=== PATIENT | female | born 1945 | race Caucasian/White ===

== ENCOUNTER 2016-10-19 18:53 | Observation (INO) | payer MEDICARE, OTHER ==
[2016-10-19 18:59] VITALS: BP 136/73; PULSE 75; RESP 20; TEMP 98; O2SAT 98
[2016-10-19] MEDS ORDERED: CITA40TA4 PO (19:11)
[2016-10-19] MEDS ORDERED: ESTR.3 PO (19:11)
[2016-10-19] MEDS ORDERED: LEVO75TA3 PO (19:11)
[2016-10-19] MEDS ORDERED: LISI10TA3 PO (19:11)
[2016-10-19] MEDS ORDERED: PANT40TA3 PO (19:11)
--- NOTE | 2016-10-19 19:24 | PD ---
HPI Chief Complaint: GI Complaint Time Seen by Provider: 19:13 Travel History International Travel<30 days: No Contact w/Intl Traveler<30days: No Traveled to known affect area: No History of Present Illness HPI This 71-year-old female says she is been having periods where she gets a flushed feeling all over. She then feels a little bit confused. She is not able to walk during the episodes. The episodes last about half an hour She had episodes like this about 2 weeks ago but did not seek any medical treatment only resolved spontaneously. This started again today. Her friend was glory says she was very flushed and seemed confused. She was half in and half out of her car and was unable to stand up This is largely resolved though she says she still doesn't feel right. PFSH Past Medical History Anxiety: Yes Diminished Hearing: No GERD: Yes Hypertension: Yes Thyroid Disease: Yes Tetanus Vaccination: Unknown Influenza Vaccination: Yes ?: Not Menopausal: Yes Past Surgical History Appendectomy: Yes Hysterectomy: Yes Tonsillectomy: Yes Social History Alcohol Use: No Tobacco Use: No Substance Use: No Allergies-Medications (Allergen,Severity, Reaction): Coded Allergies: No Known Allergies (Unverified , 10/19/16) Reported Meds & Prescriptions Reported Meds & Active Scripts Active Reported Citalopram (Citalopram Hydrobromide) 40 Mg Tab 40 Mg PO DAILY Lisinopril 10 Mg Tab 10 Mg PO DAILY Levothyroxine (Levothyroxine Sodium) 75 Mcg Tab 75 Mcg PO DAILY Pantoprazole (Pantoprazole Sodium) 40 Mg Tab 40 Mg PO DAILY Premarin (Estrogens Conjugated) 0.3 Mg Tab 0.3 Mg PO DAILY Review of Systems General / Constitutional: No: Fever, Chills Eyes: No: Diploplia, Blurred Vision HENT: Positive: Vertigo, Lightheadedness, No: Sore Throat, Neck Stiffness Cardiovascular: No: Chest Pain or Discomfort Respiratory: No: Cough Gastrointestinal: No: Nausea, Vomiting Genitourinary: No: Urgency Musculoskeletal: No: Myalgias, Arthralgias Neurologic: Positive: Weakness, Dizziness, No: Syncope Physical Exam Narrative GENERAL: Well-developed female SKIN: Focused skin assessment warm/dry. HEAD: Atraumatic. Normocephalic. EYES: Pupils equal and round. No scleral icterus. No injection or drainage. ENT: No nasal bleeding or discharge. Mucous membranes pink and moist. NECK: Trachea midline. No JVD. CARDIOVASCULAR: Regular rate and rhythm. No murmur appreciated. RESPIRATORY: No accessory muscle use. Clear to auscultation. Breath sounds equal bilaterally. GASTROINTESTINAL: Abdomen soft, non-tender, nondistended. Hepatic and splenic margins not palpable. MUSCULOSKELETAL: No obvious deformities. No clubbing. No cyanosis. No edema. NEUROLOGICAL: Awake and alert. No obvious cranial nerve deficits. Motor grossly within normal limits. Normal speech. PSYCHIATRIC: Appropriate mood and affect; insight and judgment normal. Data Data Last Documented VS Vital Signs Date Time Temp Pulse Resp B/P Pulse Ox O2 Delivery O2 Flow Rate FiO2 10/19/16 18:59 98.0 75 20 136/73 98 Orders Electrocardiogram (10/19/16 19:22) Complete Blood Count With Diff (10/19/16 19:22) Comprehensive Metabolic Panel (10/19/16 19:22) Troponin I (10/19/16 19:22) Urinalysis - C+S If Indicated (10/19/16 19:22) Ct Brain W/O Iv Contrast(Rout) (10/19/16 19:22) Aspirin (Aspirin) (10/19/16 20:30) Labs Laboratory Tests Test 10/19/16 19:30 White Blood Count 8.2 TH/MM3 Red Blood Count 3.81 MIL/MM3 Hemoglobin 11.9 GM/DL Hematocrit 35.9 % Mean Corpuscular Volume 94.3 FL Mean Corpuscular Hemoglobin 31.4 PG Mean Corpuscular Hemoglobin 33.3 % Concent Red Cell Distribution Width 12.0 % Platelet Count 294 TH/MM3 Mean Platelet Volume 7.7 FL Neutrophils (%) (Auto) 59.9 % Lymphocytes (%) (Auto) 31.7 % Monocytes (%) (Auto) 6.3 % Eosinophils (%) (Auto) 1.3 % Basophils (%) (Auto) 0.8 % Neutrophils # (Auto) 4.9 TH/MM3 Lymphocytes # (Auto) 2.6 TH/MM3 Monocytes # (Auto) 0.5 TH/MM3 Eosinophils # (Auto) 0.1 TH/MM3 Basophils # (Auto) 0.1 TH/MM3 CBC Comment DIFF FINAL Differential Comment Sodium Level 135 MEQ/L Potassium Level 3.9 MEQ/L Chloride Level 99 MEQ/L Carbon Dioxide Level 25.9 MEQ/L Anion Gap 10 MEQ/L Blood Urea Nitrogen 17 MG/DL Creatinine 1.30 MG/DL Estimat Glomerular Filtration 40 ML/MIN Rate Random Glucose 115 MG/DL Calcium Level 8.6 MG/DL Total Bilirubin 0.4 MG/DL Aspartate Amino Transf 31 U/L (AST/SGOT) Alanine Aminotransferase 19 U/L (ALT/SGPT) Alkaline Phosphatase 61 U/L Troponin I LESS THAN 0.02 NG/ML Total Protein 7.3 GM/DL Albumin 3.5 GM/DL MDM Medical Decision Making Medical Screen Exam Complete: Yes Emergency Medical Condition: Yes Medical Record Reviewed: Yes Differential Diagnosis Differential includes TIA, electrolyte imbalance, anemia Narrative Course CT scan of the brain is negative. Patient did have an episode while here. Repeat examination at that time showed her to be alert but she seemed a little slow to answer questions. Exchange Operator were equal. Leg strength is slightly weak bilaterally. 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
[2016-10-19 19:38] LABS: AUTOMATED NEUTROPHIL # 4.9 TH/MM3 (1.8-7.7); BASOPHIL # 0.1 TH/MM3 (0-0.2); BASOPHIL % 0.8 % (0.0-2.0); EOSINOPHIL # 0.1 TH/MM3 (0-0.4); EOSINOPHIL % 1.3 % (0.0-4.0); HEMATOCRIT 35.9 % (35.0-46.0); HEMO FLAGS DIFF FINAL; LYMPH % 31.7 % (9.0-44.0); LYMPHOCYTE # 2.6 TH/MM3 (1.0-4.8); MEAN CELL VOLUME 94.3 FL (80.0-100.0); MEAN CORPUSCULAR HEMOGLOBIN 31.4 PG (27.0-34.0); MEAN CORPUSCULAR HGB CONC 33.3 % (32.0-36.0); MONO % 6.3 % (0.0-8.0); NEUT % 59.9 % (16.0-70.0); PLATELET COUNT 294 TH/MM3 (150-450); RED BLOOD COUNT 3.81 MIL/MM3 (4.00-5.30); WHITE BLOOD COUNT 8.2 TH/MM3 (4.0-11.0)
[2016-10-19 19:45] LABS: CHLORIDE 99 MEQ/L (98-107); POTASSIUM 3.9 MEQ/L (3.5-5.1); SODIUM (NA) 135 MEQ/L (136-145)
[2016-10-19 19:48] LABS: ANION GAP 10 MEQ/L (5-15); BICARBONATE 25.9 MEQ/L (21.0-32.0)
[2016-10-19 19:49] LABS: BLOOD UREA NITROGEN 17 MG/DL (7-18)
--- NOTE | 2016-10-19 19:50 | RADHPO ---
EXAM DATE/TIME: 10/19/2016 19:33 [facility] COMPARISON: No previous studies available for comparison. INDICATIONS : Altered mental status, dizziness. RADIATION DOSE: 61.92 CTDIvol (mGy) MEDICAL HISTORY : Hypertension. SURGICAL HISTORY : None. ENCOUNTER: Initial ACUITY: 1 day PAIN SCALE: 0/10 LOCATION: cranial TECHNIQUE: Multiple contiguous axial images were obtained of the head. Using automated exposure control and adj ustment of the mA and/or kV according to patient size, radiation dose was kept as low as reasonably a chievable to obtain optimal diagnostic quality images. FINDINGS: CEREBRUM: The ventricles are normal for age. No evidence of midline shift, mass lesion, hemorrhage or acute in farction. No extra-axial fluid collections are seen. POSTERIOR FOSSA: The cerebellum and brainstem are intact. The 4th ventricle is midline. The cerebellopontine angle i s unremarkable. EXTRACRANIAL: The visualized portion of the orbits is intact. SKULL: The calvaria is intact. No evidence of skull fracture. CONCLUSION: Unremarkable noncontrast exam. Uvaldo Dyson MD on October 19, 2016 at 19:48 Board Certified Radiologist. This report was verified electronically.
[2016-10-19 19:51] LABS: ALT (GPT) 19 U/L (10-53); AST (GOT) 31 U/L (15-37)
[2016-10-19 19:52] LABS: GLOMERULAR FILTRATION RATE 40 ML/MIN (>89)
[2016-10-19 19:53] LABS: TOTAL BILIRUBIN ADULT 0.4 MG/DL (0.2-1.0)
[2016-10-19 19:54] LABS: ALKALINE PHOSPHATASE 61 U/L (45-117)
[2016-10-19] MEDS ORDERED: ASPIRIN 325 MG TAB PO ONE (20:30)
[2016-10-19 21:25] VITALS: BP 144/78; PULSE 93; RESP 18; TEMP 98.3; O2SAT 99
[2016-10-19] MEDS ORDERED: SODIUM CHLORIDE 0.9% FLUSH 10 ML FLUSH IV FLUSH PRN (21:45)
[2016-10-19 22:26] VITALS: BP 137/70; TEMP 98.3
[2016-10-19 23:45] VITALS: PULSE 65
[2016-10-19 23:54] LABS: BLOOD, URINE NEG (NEG); GLUCOSE,URINE NEG (NEG); KETONE, URINE NEG (NEG); NITRITE,URINE NEG (NEG)
[2016-10-20] VITALS (11 sets, daily range): BP systolic 108–151; BP diastolic 58–82; PULSE 62–91; RESP 16–20; TEMP 96–97.9; O2SAT 94–99
[2016-10-20 00:01] LABS: RBC, URINE 0-2 /hpf (0-3); URINE COLOR STRAW (YELLW/STRAW); WBC, URINE 0-2 /hpf (0-5)
[2016-10-20 00:02] LABS: BACTERIA, URINE OCC /hpf; COMMENT (UR) CULT NOT INDICATED; CULTURE IF INDICATED CULT NOT INDICATED
[2016-10-20] MEDS: LEVOTHYROXINE SODIUM 75 MCG TAB PO SCH (06:20)
[2016-10-20] MEDS: PANTOPRAZOLE SOD 40 MG DELAYED RELEASE TAB PO SCH (06:21)
[2016-10-20] MEDS: SODIUM CHLOR 0.9% 1000 ML INJ 1,000 ML IV SCH ×2 (07:52→22:10)
[2016-10-20] MEDS ORDERED: DOCUSATE SODIUM 50 MG/SENNA 8.6 MG TAB PO PRN (08:00)
[2016-10-20] MEDS ORDERED: ONDANSETRON HCL 4 MG/2 ML VIAL IV PRN (08:00)
[2016-10-20] MEDS ORDERED: CALCIUM CARBONATE 500 MG CHEWABLE TAB CHEW PRN (08:00)
[2016-10-20] MEDS ORDERED: ACETAMINOPHEN 325 MG TAB PO PRN (08:00)
[2016-10-20 08:04] LABS: POTASSIUM 4.6 MEQ/L (3.5-5.1)
[2016-10-20 08:07] LABS: BICARBONATE 29.2 MEQ/L (21.0-32.0)
[2016-10-20] MEDS ORDERED: ASPIRIN 81 MG CHEW TAB PO SCH (09:00)
[2016-10-20 09:07] LABS: HDL CHOLESTEROL 77.2 MG/DL (40.0-60.0); LDL CHOLESTEROL 83 MG/DL (0-99)
[2016-10-20] MEDS: ASPIRIN EC 81 MG TABEC PO SCH (09:38)
[2016-10-20] MEDS: CITALOPRAM HYDROBROMIDE 40 MG TAB PO SCH (09:38)
[2016-10-20] MEDS: SODIUM CHLORIDE 0.9% FLUSH 10 ML FLUSH IV FLUSH SCH ×2 (09:38→20:27)
--- NOTE | 2016-10-20 09:39 | HHI.HP ---
[facility] Shahid Jara M.D. Admission Diagnosis TIA Diagnoses: Chief Complaint: Confusion Travel History International Travel<30 Days: No Contact w/Intl Traveler <30 Da: No Traveled to Known Affected Are: No History of Present Illness Ms. Castro is 71 yo with history of anxiety, GERD, Hypertension, and hypothyroidism. Ms. Castro reported having the onset of "spells" before 2015. She stated these events will begin with "flushing" and a sense of movement "up my body" with subsequent confusion, light headedness, confusion and difficulty walking. She noted these events were "usually on a monthly basis" lasting " about 30 minutes each time." She stated she saw her PCP shortly after the first episode and "I had some sort of scan done on me." Seemingly, results were inconclusive as pt was told "we will wait and see what happens." Pt previous episode was late September. She experienced one on 10/19/16 and "that was too close from the last one." She came to [facility] for evaluation.She noted while she was in the ED she "had a another one." Upon interview, she denied having facial droop, difficulty with speech or swallowing, or hemiparesis. She did endorse heart palpitation but denied they occur at the time of her "spells." Pt denied recent change in medications. Pt evidenced a spell upon a subsequent visit. During this period she reported being warm, light headed, and weak. Pt's systolic pressure was noted to be 136 while seated and dropped to 118 upon standing. No other issues were noted or reported. Review of Systems Except as stated in HPI: all other systems reviewed are Neg Past Family Social History Past Medical History anxiety, GERD, hypertension, and hypothyroidism Past Surgical History Pt noted she had a hysterectomy "but they kept my ovaries." Tonsillectomy. Appendectomy. Reported Medications Reported Meds & Active Scripts Active Reported Citalopram (Citalopram Hydrobromide) 40 Mg Tab 40 Mg PO DAILY Lisinopril 10 Mg Tab 10 Mg PO DAILY Levothyroxine (Levothyroxine Sodium) 75 Mcg Tab 75 Mcg PO DAILY Pantoprazole (Pantoprazole Sodium) 40 Mg Tab 40 Mg PO DAILY Premarin (Estrogens Conjugated) 0.3 Mg Tab 0.3 Mg PO DAILY Allergies: Coded Allergies: No Known Allergies (Unverified , 10/19/16) Active Ordered Medications Current Medications Medications (Trade) Dose Ordered Sig/Marck Route Start Time Stop Time Status Last Admin (NS Flush) 2 ml BID IV FLUSH 10/20/16 09:00 10/20/16 09:38 (NS Flush) 2 ml UNSCH PRN IV FLUSH 10/19/16 21:45 (CeleXA) 40 mg DAILY PO 10/20/16 09:00 10/20/16 09:38 (Synthroid) 75 mcg DAILY@06 PO 10/20/16 06:00 10/20/16 06:20 (Protonix) 40 mg DAILY@06 PO 10/20/16 06:00 10/20/16 06:21 (Tylenol) 650 mg Q4H PRN PO 10/20/16 08:00 (Zofran Inj) 4 mg Q6H PRN IV 10/20/16 08:00 (Risa-Colace) 1 tab BID PRN PO 10/20/16 08:00 Calcium Carbonate 1000 mg 1,000 mg TID PRN CHEW 10/20/16 08:00 (NS 1000 ml Inj) 1,000 ml @ 70 mls/hr [id number] IV 10/20/16 07:52 (Ecotrin Ec) 81 mg DAILY PO 10/20/16 09:00 10/20/16 09:38 Family History Pt reported her mother had several "mini-strokes." No otehr family history reported. Social History Pt denied use of alcohol, nicotine, and illicit/recreational drugs. Physical Exam Vital Signs Vital Signs Date Time Temp Pulse Resp B/P Pulse Ox O2 Delivery O2 Flow Rate FiO2 10/20/16 08:52 98 21 10/20/16 06:00 97.0 64 20 128/65 98 10/20/16 04:00 96.6 64 18 121/65 97 10/20/16 02:15 96.6 62 18 130/66 97 10/20/16 00:15 96.0 63 20 143/75 97 10/19/16 23:45 65 10/19/16 22:26 98.3 88 20 137/70 98 10/19/16 21:25 98.3 93 18 144/78 99 10/19/16 18:59 98.0 75 20 136/73 98 Physical Exam GENERAL: This is a well-nourished, well-developed patient, in no apparent distress. SKIN: No rashes, ecchymoses or lesions. Cool and dry. HEAD: Atraumatic. Normocephalic. No temporal or scalp tenderness. EYES: Pupils equal round and reactive. Extraocular motions intact. No scleral icterus. No injection or drainage. ENT: Nose without bleeding, purulent drainage or septal hematoma. Throat without erythema, tonsillar hypertrophy or exudate. Uvula midline. Airway patent. NECK: Trachea midline. No JVD or lymphadenopathy. Supple, nontender, no meningeal signs. CARDIOVASCULAR: Regular rate and rhythm without murmurs, gallops, or rubs. RESPIRATORY: Clear to auscultation. Breath sounds equal bilaterally. No wheezes , rales, or rhonchi. GASTROINTESTINAL: Abdomen soft, non-tender, nondistended. No guarding. MUSCULOSKELETAL: Extremities without clubbing, cyanosis, or edema. No joint tenderness, effusion, or edema noted. No calf tenderness. NEUROLOGICAL: Awake and alert. Cranial nerves II through XII intact. Motor and sensory grossly within normal limits. Five out of 5 muscle strength in all muscle groups. Normal speech. Laboratory Laboratory Tests Test 10/19/16 10/19/16 10/20/16 19:30 23:15 06:17 White Blood Count 8.2 Red Blood Count 3.81 Hemoglobin 11.9 Hematocrit 35.9 Mean Corpuscular Volume 94.3 Mean Corpuscular Hemoglobin 31.4 Mean Corpuscular Hemoglobin 33.3 Concent Red Cell Distribution Width 12.0 Platelet Count 294 Mean Platelet Volume 7.7 Neutrophils (%) (Auto) 59.9 Lymphocytes (%) (Auto) 31.7 Monocytes (%) (Auto) 6.3 Eosinophils (%) (Auto) 1.3 Basophils (%) (Auto) 0.8 Neutrophils # (Auto) 4.9 Lymphocytes # (Auto) 2.6 Monocytes # (Auto) 0.5 Eosinophils # (Auto) 0.1 Basophils # (Auto) 0.1 CBC Comment DIFF FINAL Differential Comment Sodium Level 135 142 Potassium Level 3.9 4.6 Chloride Level 99 105 Carbon Dioxide Level 25.9 29.2 Anion Gap 10 8 Blood Urea Nitrogen 17 14 Creatinine 1.30 1.00 Estimat Glomerular Filtration 40 55 Rate Random Glucose 115 92 Calcium Level 8.6 9.3 Total Bilirubin 0.4 Aspartate Amino Transf 31 (AST/SGOT) Alanine Aminotransferase 19 (ALT/SGPT) Alkaline Phosphatase 61 Troponin I LESS THAN 0.02 Total Protein 7.3 Albumin 3.5 Urine Color STRAW Urine Turbidity CLEAR Urine pH 7.0 Urine Specific Peck 1.006 Urine Protein NEG Urine Glucose (UA) NEG Urine Ketones NEG Urine Occult Blood NEG Urine Nitrite NEG Urine Bilirubin NEG Urine Leukocyte Esterase NEG Urine RBC 0-2 Urine WBC 0-2 Urine Squamous Epithelial 6-8 Cells Urine Bacteria OCC Microscopic Urinalysis Comment CULT NOT INDICATED Total Creatine Kinase 48 Triglycerides Level 232 Cholesterol Level 207 LDL Cholesterol 83 HDL Cholesterol 77.2 Cholesterol/HDL Ratio 2.68 Thyroid Stimulating Hormone 2.530 3rd Gen Result Diagram: 10/19/16192910/20/1617 Imaging Last [address] 10/19/161921 Signed Impressions: Service Date/Time: Wednesday, October 19, 2016 19:33 - CONCLUSION: Unremarkable noncontrast exam. Uvaldo Dyson MD Assessment and Plan Problem List: (1) TIA (transient ischemic attack) ICD Code: G45.9 Status: Acute (2) Hypertension ICD Code: I10 Status: Chronic (3) Hypothyroid ICD Code: E03.9 Status: Chronic (4) GERD (gastroesophageal reflux disease) ICD Code: K21.9 Status: Chronic Assessment and Plan TIA possible sz vs orthostasis Initial CT negative for acute issues. MRI to be ordered Holter monitor placed, pt on telemetry Carotid ultrasound to be ordered. Check EEG Neuro checks and sz precautions Start IVF neurology to be consulted. Hypertension pt's lisinopril to be held until MRI complete. If findings are negative, IVF fluids to be stopped and pt's lisinopril to be restarted. Hypothyroid check TSH level GERD continue home regimen of Protonix 40 mg PO daily DVT prophylaxis with SCD and early ambulation Code Status Full code Discussed Condition With Case discussed with Pt, nurse, and Dr. Morse. Written by Ralph Barlow, acting as scribe for Dr. Morse on 10/20/16 at 09:57. This note was transcribed by scribe Ralph Barlow. I, Dr. Neo Morse personally performed the history, physical exam, and medical decision making; and confirmed the accuracy of the information in the transcribed note. Authenticated by Dr. Neo Morse on 10/20/16 at 12:45. 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 October 20, 2016 09:39 Neo Morse MD October 20, 2016 12:46
[2016-10-20] MEDS ORDERED: levETIRAcetam 1000 MG INJ 100 ML IV ONE (12:00)
--- NOTE | 2016-10-20 12:08 | EC ---
Study Study Date:10/20/2016 STUDY CONCLUSIONS SUMMARY - Left ventricle: The cavity size was normal. Wall thickness was normal. Systolic function was normal. The estimated ejection fraction was in the range of 55% to 60%. Wall motion was normal; there were no regional wall motion abnormalities. - Aortic valve: Valve area: 2.24cm^2 (Vmax). - Tricuspid valve: Mild regurgitation. If LV function is below 40, please consider prescribing an ACEI or ARB or document rationale for non-use. PROCEDURE DATA STUDY STATUS: Elective. Procedure: Transthoracic echocardiography. Image quality was good. Scanning was performed from the parasternal, apical, and subcostal acoustic windows. Study completion: The patient tolerated the procedure well. Transthoracic echocardiography. M-mode, complete 2D, complete spectral Doppler, and color Doppler. Height: Height: 63in. Weight: Weight: 126.7lb. Body mass index: BMI: 22.5kg/m^2. Body surface area: BSA: 1.59m^2. Patient status: Inpatient. CARDIAC ANATOMY LEFT VENTRICLE: The cavity size was normal. Wall thickness was normal. Systolic function was normal. The estimated ejection fraction was in the range of 55% to 60%. Wall motion was normal; there were no regional wall motion abnormalities. AORTIC VALVE: Trileaflet; normal thickness leaflets. Doppler: Transvalvular velocity was within the normal range. There was no stenosis. No regurgitation. Valve area: 2.24cm^2 (Vmax). Indexed valve area: 1.41cm^2/m^2 (Vmax). AORTA: Aortic root: The aortic root was normal in size. MITRAL VALVE: Structurally normal valve. Doppler: Transvalvular velocity was within the normal range. There was no evidence for stenosis. Trace regurgitation. Valve area by pressure half-time: 3.73cm^2. Indexed valve area by pressure half-time: 2.35cm^2/m^2. Peak gradient: 2mm Hg (D). LEFT ATRIUM: The atrium was normal in size. RIGHT VENTRICLE: The cavity size was normal. Wall thickness was normal. PULMONIC VALVE: Doppler: Transvalvular velocity was within the normal range. There was no evidence for stenosis. No regurgitation. TRICUSPID VALVE: Structurally normal valve. Doppler: Transvalvular velocity was within the normal range. Mild regurgitation. Peak gradient: 28mm Hg (D). PULMONARY ARTERY: The main pulmonary artery was normal-sized. Systolic pressure was within the normal range. RIGHT ATRIUM: The atrium was normal in size. PERICARDIUM: There was no pericardial effusion. SYSTEMIC VEINS: Inferior vena cava: The vessel was normal in size. Patient weight: 126.7lb _Ejection fraction:_ 65-75% _Fractional shortening:_ 32% up to 5Kg 5-11.5Kg 11.6-22.9Kg 23-45Kg 45-57Kg Aortic Root 7-13 <17 13-22 17-27 17-27 LA diam 6-13 <23 24-38 33-47 37-40 RVID 10-17 7-15 7-15 7-18 8-17 LVIDd 12-22 <32 24-38 33-47 37-40 LVPW 2-4 3-6 5-7 6-8 7-8 IVS 2-4 3-6 5-7 6-8 7-8 BASIC MEASUREMENTS ADULT NORMAL Left ventricle LV internal dimension, ED, chordal 44.4 mm 43-52 level, PLAX LV internal dimension, ES, chordal 27.7 mm 23-38 level, PLAX Fractional shortening, chordal level, 38 % >29 PLAX LV posterior wall thickness, ED 6.69 mm IVS/LVPW ratio, ED 1.03 <1.3 Ventricular septum Septal thickness, ED 6.86 mm Left atrium Anterior-posterior dimension 29 mm Anterior-posterior dimension index 1.82 cm/m^2 <2.2 Right ventricle RV internal dimension, ED, PLAX 26.6 mm 19-38 DOPPLER MEASUREMENTS ADULT NORMAL Aortic valve Peak velocity, S 128 cm/s Valve area, Vmax 2.24 cm^2 Valve area index, Vmax 1.41 cm^2/m^2 Mitral valve Peak E-wave velocity 73.5 cm/s Peak A-wave velocity 90.8 cm/s Pressure half-time 59 ms Peak gradient, D 2 mm Hg Peak E/A ratio 0.8 Valve area, pressure half-time 3.73 cm^2 Valve area index, pressure half-time 2.35 cm^2/m^2 Tricuspid valve Peak gradient, D 28 mm Hg Maximal inflow velocity 263 cm/s Systemic veins Estimated CVP 10 mm Hg Pulmonic valve Peak velocity, S 84.2 cm/s LEGEND: Mean values are shown as u=mean value. Asterisk (*) collins values outside specified normal range. Prepared and signed by Joesph Gaines [id number]
--- NOTE | 2016-10-20 12:40 | MB ---
cc: GARCIA ORR M.D. DATE OF CONSULTATION 10/20/2016 REASON FOR CONSULTATION This is a 71-year-old seen in neurological consultation. She was brought to the hospital yesterday because of increasing frequency and severity of spells. Apparently she has had spells since June this year or even before [place]. She has a sense of a flushing sensation, this seems to come with an unusual smell that moves from her stomach to her nose and head. She might act up a little bit confused. There was some sort of spell yesterday and the patient seemed to be staring and poorly responsive and did not seem to be able to carry out activities appropriately. Apparently some of these spells may last 30 minutes or so. They become more frequent and she subsequently came to the hospital. PAST MEDICAL HISTORY She has a history of: 1. Hypertension 2. Depression MEDICATIONS he is on: 1. Citalopram 2. Lisinopril 3. Thyroid replacement 4. Pantoprazole 5. Premarin FAMILY HISTORY No history of stroke, seizures or TIAs. SOCIAL HISTORY She does not use any recreational drugs or alcohol. NEUROLOGICAL EXAM The neurologic exam shows normal mentation. She was alert pleasant, and oriented. Ocular movements and visual chong full. Normal strength throughout. Reflexes were 1+ throughout. Plantar responses flexor. Pupils equal and reactive. Normal speech and language. The CT brain is negative. When I saw her, she was getting ready to go to the MRI brain. The laboratory data was reviewed. CBC is normal and chemistry is showing slight increase in creatinine, sodium 135, glucose 115. ASSESSMENT Recurrent spells for the past few months. The spells actually seemed to be more suggestive of a complex partial seizure rather than TIA as questioned. Therefore, I am requesting an EEG and after the EEG is completed, I will start her on Keppra intravenous one gram bolus followed by 500 mg twice a day and if the MRI brain is negative, she could be followed in the office in a weekly two. She is to have carotid ultrasound, already requested. I have discussed this with the patient and I have asked her not to drive for the time being and informed her that the law in [place] would require at least six months of seizure free before she is allowed back to driving and she understands this well. The son accompanied her during my visit. Thank you for asking us to assist in her care. MD CHLOÉ Kaufman/NEHA /12:19 PM /12:30 PM
[2016-10-20] MEDS ORDERED: ASPI81TA11 PO (13:08)
[2016-10-20] MEDS ORDERED: LEVE500 PO (13:08)
--- NOTE | 2016-10-20 13:08 | HHI.DCPOC ---
Discharge Care Plan Diagnosis: (1) TIA (transient ischemic attack) (2) Hypertension Your Health Problems Are: Difficulty with ADL Exercise Tolerance Goals to Promote Your Health * To prevent worsening of your condition and complications * To maintain your health at the optimal level Directions to Meet Your Goals Take your medications as prescribed Follow your dietary instruction Follow activity as directed Keep your appointments as scheduled Take your immunizations and boosters as scheduled If your symptoms worsen call your PCP, if no PCP go to Urgent Care Center or Emergency Room Smoking is Dangerous to Your Health. Avoid second hand smoke Call the 24-hour hour crisis hotline for domestic abuse at Neo Morse MD October 20, 2016 13:08
--- NOTE | 2016-10-20 14:00 | RADHPO ---
EXAM DATE/TIME: 10/20/2016 11:34 [facility] COMPARISON: No previous studies available for comparison. INDICATIONS : CVA. MEDICAL HISTORY : Hypertension. SURGICAL HISTORY : Hysterectomy. Appendectomy. Breast implants. ENCOUNTER: Initial ACUITY: 1 day PAIN SCORE: 0/10 LOCATION: Head. TECHNIQUE: Multiplanar, multisequence MRI of the brain was performed without contrast. FINDINGS: CEREBRUM: The ventricles are normal for age. No evidence of midline shift, mass lesion, hemorrhage or acute in farction. No extraaxial fluid collections are seen. The pituitary gland and suprasellar cistern are normal in configuration. WHITE MATTER: There is some punctate areas of increased T2 signal most consistent with mild microvascular ischemic demyelinative change. No significant signal abnormalities are seen in the white matter. POSTERIOR FOSSA: The cerebellum and brainstem are intact. The 4th ventricle is midline. The cerebellopontine angle is unremarkable. The cerebellar tonsils are normal in position. DIFFUSION IMAGING: No focal areas of restricted diffusion are seen. No evidence of acute infarction. EXTRACRANIAL: The visualized portions of the orbits and paranasal sinuses are unremarkable. CONCLUSION: 1. No findings to indicate acute cortical infarct. Robret Danielle MD on October 20, 2016 at 13:55 Board Certified Radiologist. This report was verified electronically.
--- NOTE | 2016-10-20 14:31 | RADHPO ---
EXAM DATE/TIME: 10/20/2016 18:20 [place] COMPARISON: No previous studies available for comparison. INDICATIONS : Cerebrovascular accident. MEDICAL HISTORY : Gastroesophageal reflux disease. Hypertension. Thyroid disease. SURGICAL HISTORY : Appendectomy. Hysterectomy. Tonsillectomy. ENCOUNTER: Initial ACUITY: 1 day PAIN SCORE: 0/10 LOCATION: Bilateral neck PEAK SYSTOLIC VELOCITIES (cm/sec): ICA/CCA RATIO: Right: 1.6 Left: 1.3 ICA: Right: 133 Left: 120 CCA: Right: 84 Left: 89 ECA: Right: 80 Left: 98 VERTEBRAL: Right: 57 antegrade Left: 50 antegrade Elevated flow velocities and ICA/CCA ratios have been found to correlate with increased degrees of vessel stenosis, calculated as percentage of diameter relative to a normal segment of distal ICA/CCA FINDINGS: RIGHT CAROTID: No significant stenosis is visualized. The waveforms are within normal limits. LEFT CAROTID: No significant stenosis is visualized. The waveforms are within normal limits. VERTEBRAL ARTERIES: Antegrade flow is seen in both vertebral arteries. MISCELLANEOUS: None. CONCLUSION: 1. Mild calcified plaque without a hemodynamically significant stenosis. The mild elevation of veloci ties bilaterally of the ICAs is felt related to the tortuosity of those vessels. 2. Antegrade flow involving both vertebral arteries. Silver Carpio Jr., MD on October 20, 2016 at 14:25 Board Certified Radiologist. This report was verified electronically.
[2016-10-20 18:38] LABS: HEMOGLOBIN A1b 1.6 %; HEMOGLOBIN LA1C 1.9 %
--- NOTE | 2016-10-20 18:48 | EKG ---
Date Performed: 10/19/2016 Time Performed: 19:31:16 PTAGE: 71 years EKG: Sinus rhythm Normal ECG NO PREVIOUS TRACING DOCTOR: Misael Rizo Interpretating Date/Time 10/20/2016 18:44:14
[2016-10-20] MEDS: levETIRAcetam 500 MG TAB PO SCH (20:27)
[2016-10-21] VITALS: BP 131/72; PULSE 70; RESP 16; TEMP 98.1; O2SAT 96
[2016-10-21] MEDS: SODIUM CHLOR 0.9% 1000 ML INJ 1,000 ML IV SCH (01:07)
[2016-10-21 04:00] VITALS: BP 140/77; PULSE 66; RESP 18; TEMP 97.4; O2SAT 95
[2016-10-21] MEDS: PANTOPRAZOLE SOD 40 MG DELAYED RELEASE TAB PO SCH (05:33)
[2016-10-21] MEDS: LEVOTHYROXINE SODIUM 75 MCG TAB PO SCH (05:33)
--- NOTE | 2016-10-21 07:37 | MG ---
cc: ROSA GAVIRIA M.D. Lab No: [id number] Date: 10/21/2016 Age: 71 Sex: F Awake, drowsy and asleep. A 71-year-old woman confused, anxiety, caffeine. Celexa, Keppra. DESCRIPTION An 8 Hz, 60 microvolt posterior symmetric rhythm is noted. Photic stimulation was performed without significant posterior driving. The recording overall is synchronous and symmetric. Hyperventilation was performed without significant change in the background. The patient fell asleep but did not reach stage II sleep. IMPRESSION Normal awake and sleep EEG. No evidence for a focal or diffuse abnormality. MD KASSI Hooper/WILFRED /7:12 AM /7:34 AM
[2016-10-21 08:00] VITALS: BP_SYST 131; BP_SYST 139; BP_DIAS 76; BP_DIAS 85; PULSE 85; RESP 19; TEMP 97.7; O2SAT 94
--- NOTE | 2016-10-21 08:45 | HHI.PR ---
Subjective Remarks Follow-up TIA versus seizure versus orthostasis. She feels much better no further episodes has been out of bed several times. Repeat orthostatics negative. Discussed with RN Objective Vitals Vital Signs Date Time Temp Pulse Resp B/P Pulse Ox O2 Delivery O2 Flow Rate FiO2 10/21/16 04:00 97.4 66 18 140/77 95 10/21/16 00:00 98.1 70 16 131/72 96 10/20/16 20:20 69 10/20/16 20:00 97.0 91 16 151/82 98 10/20/16 19:50 99 21 10/20/16 18:08 18 10/20/16 16:00 97.5 78 20 135/79 96 10/20/16 10:00 73 116/71 94 10/20/16 10:00 72 120/68 94 10/20/16 10:00 81 108/58 95 10/20/16 08:52 98 21 I/O 10/20/16 10/20/16 10/20/16 10/21/16 10/21/16 10/21/16 07:00 15:00 23:00 07:00 15:00 23:00 Intake Total 0 ml 400 ml 1159 ml 560 ml Balance 0 ml 400 ml 1159 ml 560 ml Intake Oral 0 ml 400 ml 400 ml IV Total 759 ml 560 ml # Voids 1 4 3 # Bowel Movements 0 0 Result Diagram: 10/19/16 1930 10/20/16 0617 Imaging Last Impressions Carotid Artery Ultrasound 10/20/16 0000 Signed Impressions: Service Date/Time: October 18:20 - CONCLUSION: 1. Mild calcified plaque without a hemodynamically significant stenosis. The mild elevation of velocities bilaterally of the ICAs is felt related to the tortuosity of those vessels. 2. Antegrade flow involving both vertebral arteries. Silver Carpio Jr., MD Brain MRI 10/20/16 0000 Signed Impressions: Service Date/Time: October 11:34 - CONCLUSION: 1. No findings to indicate acute cortical infarct. Robert Danielle MD Head CT 10/19/16 1922 Signed Impressions: Service Date/Time: Wednesday, October 19, 2016 19:33 - CONCLUSION: Unremarkable noncontrast exam. Uvaldo Dyson MD Objective Remarks GENERAL: This is a well-nourished, well-developed patient, in no apparent distress. SKIN: No rashes, ecchymoses or lesions. Cool and dry. HEAD: Atraumatic. Normocephalic. No temporal or scalp tenderness. EYES: Pupils equal round and reactive. Extraocular motions intact. No scleral icterus. No injection or drainage. ENT: Nose without bleeding, purulent drainage or septal hematoma. Throat without erythema, tonsillar hypertrophy or exudate. Uvula midline. Airway patent. NECK: Trachea midline. No JVD or lymphadenopathy. Supple, nontender, no meningeal signs. CARDIOVASCULAR: Regular rate and rhythm without murmurs, gallops, or rubs. RESPIRATORY: Clear to auscultation. Breath sounds equal bilaterally. No wheezes , rales, or rhonchi. GASTROINTESTINAL: Abdomen soft, non-tender, nondistended. No guarding. MUSCULOSKELETAL: Extremities without clubbing, cyanosis, or edema. No joint tenderness, effusion, or edema noted. No calf tenderness. NEUROLOGICAL: Awake and alert. Cranial nerves II through XII intact. Motor and sensory grossly within normal limits. Five out of 5 muscle strength in all muscle groups. Normal speech. Procedures none A/P Problem List: (1) TIA (transient ischemic attack) ICD Code: G45.9 Status: Resolved (2) Hypertension ICD Code: I10 Status: Chronic (3) Hypothyroid ICD Code: E03.9 Status: Chronic (4) GERD (gastroesophageal reflux disease) ICD Code: K21.9 Status: Chronic Assessment and Plan Sz vs orthostasis vs TIA. Currently improved. Neurologically intact Neuro workup negative to include head CT, brain MRI, Carotid ultrasound, ECHO and EEG Neuro checks and sz precautions Orthostatics improved off IV fluids neurology started Keppra which patient is tolerating. No climbing heights, carrying young children and swimming alone Hypertension pt's lisinopril to be restarted if systolic blood pressure greater than 120 Hypothyroid Normal TSH level GERD continue home regimen of Protonix 40 mg PO daily DVT prophylaxis with SCD and early ambulation Discharge Planning Discharge patient to home Condition on discharge: Improved Regular Diet as tolerated Ad Kelley activity. 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
[2016-10-21] MEDS: levETIRAcetam 500 MG TAB PO SCH (09:21)
[2016-10-21] MEDS: CITALOPRAM HYDROBROMIDE 40 MG TAB PO SCH (09:21)
[2016-10-21] MEDS: ASPIRIN EC 81 MG TABEC PO SCH (09:22)
[2016-10-21] MEDS: SODIUM CHLORIDE 0.9% FLUSH 10 ML FLUSH IV FLUSH SCH (09:22)
--- NOTE | 2016-10-24 11:32 | HM ---
Date Performed: 10/20/2016 Time Performed: 16:28:00 HOOKUP DATE: 10/20/16 04:28:00 PM [facility] ANALYSIS START TIME: 10/20/2016 4:33:00 PM ANALYSIS END TIME: 10/21/2016 11:20:40 AM PATIENT AGE: 71 PATIENT HEIGHT PATIENT WEIGHT DRUG LIST PATIENT DIAGNOSIS TEST NARRATIVE: The patient's average heart rate was 69 BPM. No episodes of tachycardia wer e noted. No episodes of bradycardia were noted. No pauses exceeding 2.0 seconds were noted. 112 ventricular ectopics, which represented < 1% of the total beat count, were noted. The highest ve ntricular ectopic frequency occurred from 09:00 AM to 10:00 AM Fri. During this time 16 VE(s) occurr ed. Ventricular ectopics were observed as 112 isolated beat(s) only. No couplets or runs were noted . 137 supraventricular ectopics, which represented < 1% of the total beat count, were noted. The highest supraventricular ectopic frequency occurred from 04:00 AM to 05:00 AM Fri. During this time 30 SVE(s) occurred. No episodes of ST depression (defined as -1.0 mm or more) were noted in [place] 1. No episodes of ST depression (defined as -1.0 mm or more) were noted in channel 2. No episod es of ST depression (defined as -1.0 mm or more) were noted in channel 3. TEST INTERPRETATION: Benign Holter Monitor Signed by : Juan Mendieta
== END 2016-10-21 09:39 | disposition home or self-care (01) ==
LOC: PHED 18:53 → PHEDA 20:48 → PH3A 22:49
PROVIDERS: ADMIT Internal Medicine; ATTEND Internal Medicine
DX: G45.0 Vertebro-basilar artery syndrome (principal); K21.9 Gastro-esophageal reflux disease without esophagitis; I10 Essential (primary) hypertension; E03.9 Hypothyroidism, unspecified; F41.9 Anxiety disorder, unspecified; F32.9 Major depressive disorder, single episode, unspecified
CPT/HCPCS: 70450; 70551; 80048; 80053; 80061; 81001; 82550; 82948; 83036; 84443; 84484; 85025; 92523; 92610; 93005; 93225; 93226; 93306; 93880; 94150; 95819; 97162; 97166; 99285; G0378; G8987; G8988; G8989; G8996; G8997; G8998; G9159; G9160; G9161; J1953; J7030

== ENCOUNTER 2016-12-13 10:23 | Emergency (ER) | payer MEDICARE, OTHER ==
[~2016-12-13] VITALS: Ht 160 cm; Wt 62.0 kg
[~2016-12-13 10:23] MED LIST: ASPI81TA11 PO; CITA40TA4 PO; ESTR.3 PO; LEVE500 PO; LEVO75TA3 PO; LISI10TA3 PO; PANT40TA3 PO
[2016-12-13 10:35] VITALS: BP 113/47; PULSE 70; RESP 16; TEMP 98.1; O2SAT 100
--- NOTE | 2016-12-13 11:06 | PD ---
HPI Chief Complaint: GI Complaint Time Seen by Provider: 10:36 Travel History International Travel<30 days: No Contact w/Intl Traveler<30days: No Traveled to known affect area: No History of Present Illness HPI This patient had an extensive neurological workup one month ago for some atypical symptoms she's been having on and off for 2 full years. She had an episode this morning where she felt some flushing and nausea and a variety of atypical sensations. She did not have any strokelike symptoms. She had CT and MRI and EEG and neurological evaluation last month. They recommended that she follow up with the neurologist Dr. Duong and start Keppra 500 twice a day. She has not done either of these things. He felt that they may represent complex partial seizures. Symptoms severity is moderate. No alleviating factors. Spells last one hour and resolved. She is currently feeling okay now [facility] Past Medical History Anxiety: Yes Cerebrovascular Accident: Yes Diminished Hearing: No GERD: Yes Hypertension: Yes Thyroid Disease: Yes Tetanus Vaccination: < 5 Years Influenza Vaccination: Yes Menopausal: Yes Past Surgical History Appendectomy: Yes Hysterectomy: Yes Tonsillectomy: Yes Social History Alcohol Use: No Tobacco Use: No Substance Use: No Allergies-Medications (Allergen,Severity, Reaction): Coded Allergies: No Known Allergies (Unverified , 12/13/16) Reported Meds & Prescriptions Reported Meds & Active Scripts Active Keppra (Levetiracetam) 500 Mg Tab 500 Mg PO BID Aspirin EC (Aspirin) 81 Mg Tabdr 81 Mg PO DAILY Reported Citalopram (Citalopram Hydrobromide) 40 Mg Tab 40 Mg PO DAILY Lisinopril 10 Mg Tab 10 Mg PO DAILY Levothyroxine (Levothyroxine Sodium) 75 Mcg Tab 75 Mcg PO DAILY Pantoprazole (Pantoprazole Sodium) 40 Mg Tab 40 Mg PO DAILY Premarin (Estrogens Conjugated) 0.3 Mg Tab 0.3 Mg PO DAILY Review of Systems HENT: No: Headaches Cardiovascular: No: Chest Pain or Discomfort Respiratory: No: Cough Gastrointestinal: Positive: Diarrhea Skin: No Rash Neurologic: No: Weakness Physical Exam Narrative GENERAL: Well-nourished, well-developed patient. SKIN: Focused skin assessment warm/dry. HEAD: Normocephalic. EYES: No scleral icterus. No injection or drainage. NECK: Supple, trachea midline. No JVD or lymphadenopathy. CARDIOVASCULAR: Regular rate and rhythm without murmurs, gallops, or rubs. RESPIRATORY: Breath sounds equal bilaterally. No accessory muscle use. GASTROINTESTINAL: Abdomen soft, non-tender, nondistended. MUSCULOSKELETAL: No cyanosis, or edema. BACK: Nontender without obvious deformity. No CVA tenderness. NEUROLOGICAL: Awake and alert. Pupils are equal round and reactive. Motor and sensory grossly within normal limits. Five out of 5 muscle strength in all muscle groups. Normal speech. Data Data Last Documented VS Vital Signs Date Time Temp Pulse Resp B/P Pulse Ox O2 Delivery O2 Flow Rate FiO2 12/13/16 10:37 12/13/16 10:35 98.1 70 16 100 Room Air MDM Medical Decision Making Medical Screen Exam Complete: Yes Emergency Medical Condition: Yes Medical Record Reviewed: Yes Differential Diagnosis Couplets partial seizure, anxiety, panic, hormonal imbalance Narrative Course I have reviewed the patient's electronic medical record. Reviewed her neurological consultation from last month This patient has normal exam and normal vital signs and her symptoms have resolved. This is a chronic problem over 2 years of time and had full evaluation during hospitalization last month. I recommended she call neurologist for follow-up and start the keppra as he recommended I reiterated she should not be driving She should also follow with primary care Diagnosis Primary Impression: Seizure disorder, complex partial Qualified Code: G40.209 - Partial symptomatic epilepsy with complex partial seizures, not intractable, without status epilepticus Additional Instructions: Start taking her Keppra prescription Call the office of Dr. Duong and your primary physician for follow-up Neurologist has recommended no driving for 6 months Med/Other Pt SpecificInfo: Other Disposition: 01 DISCHARGE HOME Condition: Stable Nikunj Palma MD Dec 13, 2016 11:06
[2016-12-13 11:09] VITALS: BP 126/57; PULSE 70; RESP 18; O2SAT 99
== END 2016-12-13 11:34 | disposition home or self-care (01) ==
LOC: PHED 10:23
DX: G40.209 Localization-related (focal) (partial) symptomatic epilepsy and epileptic syndromes with complex partial seizures, not intractable, without status epilepticus (principal); I10 Essential (primary) hypertension; K21.9 Gastro-esophageal reflux disease without esophagitis
CPT/HCPCS: 99282

== ENCOUNTER 2017-04-02 10:01 | Emergency (ER) | payer MEDICARE, OTHER ==
[~2017-04-02] VITALS: Ht 160 cm; Wt 57.3 kg
[2017-04-02 10:05] VITALS: BP 128/70; PULSE 72; RESP 24; TEMP 98.3; O2SAT 100
[2017-04-02] MEDS ORDERED: DILA100C PO (10:21)
[2017-04-02] MEDS ORDERED: SODIUM CHLOR 0.9% 1000 ML INJ 1,000 ML IV SCH (10:45)
[2017-04-02] MEDS ORDERED: LORazepam 2 MG/ML VIAL IV PUSH ONE (10:45)
[2017-04-02 10:48] LABS: AUTOMATED NEUTROPHIL # 4.7 TH/MM3 (1.8-7.7); BASOPHIL # 0.1 TH/MM3 (0-0.2); BASOPHIL % 0.7 % (0.0-2.0); EOSINOPHIL # 0.1 TH/MM3 (0-0.4); HEMATOCRIT 36.3 % (35.0-46.0); HEMO FLAGS DIFF FINAL; LYMPH % 27.7 % (9.0-44.0); MEAN CELL VOLUME 94.8 FL (80.0-100.0); MEAN CORPUSCULAR HEMOGLOBIN 32.2 PG (27.0-34.0); MONO % 7.2 % (0.0-8.0); NEUT % 63.4 % (16.0-70.0); PLATELET COUNT 268 TH/MM3 (150-450); RED BLOOD COUNT 3.83 MIL/MM3 (4.00-5.30); RED CELL DISTRIBUTION WIDTH 12.1 % (11.6-17.2); WHITE BLOOD COUNT 7.4 TH/MM3 (4.0-11.0)
[2017-04-02 10:49] LABS: BLOOD, URINE NEG (NEG); GLUCOSE,URINE NEG (NEG); KETONE, URINE TRACE mg/dL (NEG); NITRITE,URINE NEG (NEG); PH, URINE 6.5 (5.0-8.5)
[2017-04-02 10:57] LABS: CHLORIDE 101 MEQ/L (98-107); SODIUM (NA) 135 MEQ/L (136-145)
[2017-04-02 11:03] LABS: ANION GAP 11 MEQ/L (5-15); BICARBONATE 22.8 MEQ/L (21.0-32.0); BLOOD UREA NITROGEN 15 MG/DL (7-18)
[2017-04-02 11:04] VITALS: BP 144/69; PULSE 63; RESP 16; O2SAT 99
[2017-04-02 11:06] LABS: ALT (GPT) 28 U/L (10-53); AST (GOT) 42 U/L (15-37); GLOMERULAR FILTRATION RATE 63 ML/MIN (>89)
[2017-04-02 11:07] LABS: TOTAL BILIRUBIN ADULT 0.4 MG/DL (0.2-1.0)
[2017-04-02 11:08] LABS: ALKALINE PHOSPHATASE 84 U/L (45-117); METHOD OF COLLECTION CATH; URINE COLOR YELLOW (YELLW/STRAW)
[2017-04-02 11:10] LABS: BACTERIA, URINE FEW /hpf; COMMENT (UR) CATH-CULTURE IND; COMMENT2 (UR) MUCOUS PRESENT; CULTURE IF INDICATED CATH CULTURE IND; SQUAMOUS EPITHELIAL CELL URINE > 8 /hpf (0-5); TRANSITIONAL EPI CELLS, URINE 0-5 /hpf
--- NOTE | 2017-04-02 11:31 | PD ---
HPI Chief Complaint: Seizure Time Seen by Provider: 10:15 Travel History International Travel<30 days: No Contact w/Intl Traveler<30days: No Traveled to known affect area: No History of Present Illness HPI This 71-year-old woman presents with family members complaining of what she describes as partial focal seizures. She states it for some time now she's experienced episodes of hot flashes cold chills shaking with confusion that happened in discrete episodes. She reports that she sees Dr. Duong, and he's been diagnosed as partial and focal seizures. Family reports that over the past year or 2 since he started her confusion is gotten overall worse. She was seen here in the hospital a couple months ago where she had a negative workup including EEGs were negative. She reports that she was at [facility] about a month or so ago and had negative EEGs that time as well. They're in the emergency department today because over the past week she's had episodes nearly daily, lasting 5-10 minutes, but today's had constant symptoms. She does have a history of anxiety and takes medicines for anxiety as well. Denies any other new or worsening symptoms. History Past Medical History Narrative Medical Anxiety CVA GERD Hypertension Hypothyroidism Menopausal: Yes Social History Alcohol Use: No Tobacco Use: No Allergies-Medications (Allergen,Severity, Reaction): Coded Allergies: No Known Allergies (Unverified , 04/02/17) Reported Meds & Prescriptions Reported Meds & Active Scripts Active Aspirin EC (Aspirin) 81 Mg Tabdr 81 Mg PO DAILY Reported Dilantin (Phenytoin Extended) 100 Mg Cap 100 Mg PO TID Citalopram (Citalopram Hydrobromide) 40 Mg Tab 40 Mg PO DAILY Lisinopril 10 Mg Tab 10 Mg PO DAILY Levothyroxine (Levothyroxine Sodium) 75 Mcg Tab 75 Mcg PO DAILY Pantoprazole (Pantoprazole Sodium) 40 Mg Tab 40 Mg PO DAILY Premarin (Estrogens Conjugated) 0.3 Mg Tab 0.3 Mg PO DAILY Review of Systems Except as stated in HPI: all other systems reviewed are Neg Physical Exam Narrative GENERAL: 71-year-old woman, anxious appearing, nontoxic, no acute distress. SKIN: Focused skin assessment warm/dry. HEAD: Atraumatic. Normocephalic. EYES: Pupils equal and round. No scleral icterus. No injection or drainage. ENT: No nasal bleeding or discharge. Mucous membranes pink and moist. NECK: Trachea midline. No JVD. CARDIOVASCULAR: Regular rate and rhythm. No murmur appreciated. RESPIRATORY: No accessory muscle use. Clear to auscultation. Breath sounds equal bilaterally. GASTROINTESTINAL: Abdomen soft, non-tender, nondistended. Hepatic and splenic margins not palpable. MUSCULOSKELETAL: No obvious deformities. No edema. NEUROLOGICAL: Awake and alert. No obvious cranial nerve deficits. She is a little bit of tremulousness, and some shaking, and occasionally will have abnormal muscle movements especially in her right hand. Speech is tremulous a time but otherwise normal. PSYCHIATRIC: Appropriate mood and affect; insight and judgment normal. Data Data Last Documented VS Vital Signs Date Time Temp Pulse Resp B/P (MAP) Pulse Ox O2 Delivery O2 Flow Rate FiO2 04/02/17 11:04 63 16 144/69 (94) 99 Room Air 04/02/17 10:05 98.3 Orders Orders Complete Blood Count With Diff (04/02/17 10:35) Comprehensive Metabolic Panel (04/02/17 10:35) Urinalysis - C+S If Indicated (04/02/17 10:35) Cath For Specimen (04/02/17 10:35) Iv Access Insert/Monitor (04/02/17 10:35) Phenytoin (Dilantin) (04/02/17 10:35) Sodium Chlor 0.9% 1000 Ml Inj (Ns 1000 M (04/02/17 10:45) Lorazepam Inj (Ativan Inj) (04/02/17 10:45) Urine Culture (04/02/17 10:43) Labs Laboratory Tests Test 04/02/17 10:43 White Blood Count 7.4 TH/MM3 Red Blood Count 3.83 MIL/MM3 Hemoglobin 12.3 GM/DL Hematocrit 36.3 % Mean Corpuscular Volume 94.8 FL Mean Corpuscular Hemoglobin 32.2 PG Mean Corpuscular Hemoglobin Concent 34.0 % Red Cell Distribution Width 12.1 % Platelet Count 268 TH/MM3 Mean Platelet Volume 7.6 FL Neutrophils (%) (Auto) 63.4 % Lymphocytes (%) (Auto) 27.7 % Monocytes (%) (Auto) 7.2 % Eosinophils (%) (Auto) 1.0 % Basophils (%) (Auto) 0.7 % Neutrophils # (Auto) 4.7 TH/MM3 Lymphocytes # (Auto) 2.0 TH/MM3 Monocytes # (Auto) 0.5 TH/MM3 Eosinophils # (Auto) 0.1 TH/MM3 Basophils # (Auto) 0.1 TH/MM3 CBC Comment DIFF FINAL Differential Comment Urine Collection Type CATH Urine Color YELLOW Urine Turbidity SLIGHT Urine pH 6.5 Urine Specific [place] 1.019 Urine Protein NEG mg/dL Urine Glucose (UA) NEG mg/dL Urine Ketones TRACE mg/dL Urine Occult Blood NEG Urine Nitrite NEG Urine Bilirubin NEG Urine Leukocyte Esterase NEG Urine WBC 6-8 /hpf Urine WBC Clumps OCC Urine Squamous Epithelial Cells > 8 /hpf Urine Transitional Epithelial Cells 0-5 /hpf Urine Amorphous Sediment MOD Urine Bacteria FEW /hpf Microscopic Urinalysis Comment CATH-CULTURE IND Urine Collection Time 1043 Blood Urea Nitrogen 15 MG/DL Creatinine 0.88 MG/DL Random Glucose 148 MG/DL Total Protein 7.3 GM/DL Albumin 3.4 GM/DL Calcium Level 8.2 MG/DL Alkaline Phosphatase 84 U/L Aspartate Amino Transf (AST/SGOT) 42 U/L Alanine Aminotransferase (ALT/SGPT) 28 U/L Total Bilirubin 0.4 MG/DL Sodium Level 135 MEQ/L Potassium Level 4.0 MEQ/L Chloride Level 101 MEQ/L Carbon Dioxide Level 22.8 MEQ/L Anion Gap 11 MEQ/L Estimat Glomerular Filtration Rate 63 ML/MIN Phenytoin (Dilantin) Level 18.1 MCG/ML [facility] Medical Decision Making Medical Screen Exam Complete: Yes Emergency Medical Condition: Yes Interpretation(s) LABS: CBC is unremarkable. CMP is generally unremarkable. UA is generally unremarkable. 16 white blood cells. Dilantin is 18.1 Differential Diagnosis Partial seizures, anxiety reaction, tremors or rigors, Narrative Course Medical decision making This Is a 71-year-old woman who presents to the emergency department complaining of feeling poorly with episodes of hot flashes, cold chills, shaking , fearing confusion. Labs are unremarkable. She is a little bit of pyuria with a lot of squames and noted urinary symptoms. We'll await culture. Dilantin level was therapeutic at 18.1. She was given a dose of benzodiazepine here. She still much better now. She is a little bit sedated. I spoke with Dr. Duong, the patient's neurologist. We'll have her follow-up in next day or so. She has appointment tomorrow. Give her prescription for small dose of Ativan to take as needed if symptoms persist beyond 15 minutes. Caution her specifically about risk of falls with this medication. Diagnosis Primary Impression: Episode of shaking Additional Instructions: If he has an episode of symptoms lasting more than 15 minutes, take one dose of the medication provided. Use caution as this can cause unsteadiness and increase her chance of falls. Follow-up tomorrow as scheduled with Dr. Duong. Return to the emergency department for any new or worsening symptoms. Med/Other Pt SpecificInfo: Prescription(s) given Scripts Lorazepam (Lorazepam) 0.5 Mg Tab 0.5 MG PO DAILY Y for EPISODIC SHAKING OR SEIZURES, #6 TAB 0 Refills Prov: Joesph Olivares MD 04/02/17 Disposition: 01 DISCHARGE HOME Condition: Stable Joesph Olivares MD Apr 02, 2017 11:31
[2017-04-02] MEDS ORDERED: LORA-373 PO (11:44)
[2017-04-02 12:19] VITALS: BP 131/61
== END 2017-04-02 12:22 | disposition home or self-care (01) ==
LOC: PHED 10:01
DX: R56.9 Unspecified convulsions (principal); Z86.73 Personal history of transient ischemic attack (TIA), and cerebral infarction without residual deficits; F41.9 Anxiety disorder, unspecified; K21.9 Gastro-esophageal reflux disease without esophagitis; I10 Essential (primary) hypertension; E03.9 Hypothyroidism, unspecified; Z79.82 Long term (current) use of aspirin; Z79.899 Other long term (current) drug therapy
CPT/HCPCS: 80053; 80185; 81001; 85025; 87077; 87086; 87186; 96361; 96374; 99284; J2060; J7030

== ENCOUNTER → 2017-08-08 | Outpatient (CLI) | payer MEDICARE ==
[~2017-08-08] MED LIST changes: -ASPI81TA11 PO; +ASPI81TA23 PO; +DILA100C PO; -LEVE500 PO; +LORA0.5T PO
== END ==
LOC: PLAB 09:32
PROVIDERS: ATTEND Psychiatry & Neurology Neurology
DX: G40.909 Epilepsy, unspecified, not intractable, without status epilepticus (principal)
CPT/HCPCS: 36415; 80185

== ENCOUNTER → 2017-08-15 | Outpatient (CLI) | payer MEDICARE | LOC: PLAB 09:24 | PROVIDERS: ATTEND Psychiatry & Neurology Neurology | DX: G40.909 Epilepsy, unspecified, not intractable, without status epilepticus (principal) | CPT/HCPCS: 36415; 80185 ==